=== PATIENT | female | born 1970 | race Caucasian/White ===

== ENCOUNTER → 2020-10-01 | Outpatient (CLI) | payer BC, OTHER ==
[2020-10-02 01:03] LABS: Basophils # (A) 0.04 X 10*3/uL (0.00-0.10); Basophils % (A) 0.4 %; Eosinophils # (A) 0.15 X 10*3/uL (0.04-0.35); Eosinophils % (A) 1.5 %; HCT 40.4 % (37.2-46.3); HGB 12.9 g/dL (12.0-15.0); Lymphocytes # (A) 3.26 X 10*3/uL (0.90-5.00); Lymphocytes % (A) 31.6 %; MCH 27.4 pg (27.0-32.0); MCHC 31.9 g/dL (32.0-37.0); Mean Platelet Volume 10.8 fL (9.5-12.2); Monocytes # (A) 0.64 X 10*3/uL (0.20-1.00); Monocytes % (A) 6.2 %; Neutrophils # (A) 6.18 X 10*3/uL (1.80-7.70); Neutrophils % (A) 59.9 %; Platelet Count 382 X 10*3/uL (140-440); RDW 13.1 % (11.5-14.5); WBC 10.31 X 10*3/uL (4.50-10.00)
[2020-10-02 09:38] LABS: % Iron Saturation 10.99 (12.00-45.00); ALT 15 U/L (8-44); AST 19 U/L (13-35); African American GFR (CKD) 123.2 (60.0-200.0); Albumin/Globulin Ratio 1.81 (1.60-3.17); Alkaline Phosphatase 95 U/L (41-126); BUN/Creat Ratio 23.33 Ratio (12.00-20.00); Calcium 9.8 mg/dL (8.7-10.3); Carbon Dioxide 20.2 mmol/L (21.6-31.8); Chloride 104 mmol/L (96-109); Globulin 2.6 g/dL (1.6-3.3); Glucose 95 mg/dL (70-110); Iron 40 ug/dL (50-170); Non-African American GFR(CKD) 106.3 (60.0-200.0); Potassium 4.5 mmol/L (3.5-5.5); Sodium 138 mmol/L (135-145); Total Bilirubin 0.5 mg/dL (0.2-1.2); Total Iron Binding Capacity 364 ug/dL (228-460); Total Protein 7.3 g/dL (6.2-8.2)
[2020-10-02 10:05] LABS: Folate, Serum >24.0 ng/mL
[2020-10-02 14:50] LABS: Ferritin 38.9 ng/mL (10.0-291.0)
== END | disposition home or self-care (01) ==
LOC: LABWHC1 16:14
PROVIDERS: ATTEND Family Medicine Hospice and Palliative Medicine
DX: D50.0 Iron deficiency anemia secondary to blood loss (chronic) (principal)
CPT/HCPCS: 36415; 80053; 82607; 82728; 82746; 83540; 83550; 85025

== ENCOUNTER 2024-06-09 17:05 | Emergency (ER) | payer BC, OTHER ==
--- NOTE | 2024-06-09 17:39 | ED ---
Chest Pain HPI - General Chief Complaint: Chest Pain Stated Complaint: Chest Pain Time Seen by Provider: 06/09/24 17:15 Source: patient Mode of arrival: wheelchair Limitations: no limitations - History of Present Illness Initial Comments: This patient is 53-year-old woman who presents to have evaluation of left-sided chest pain that she describes as sharp. She states it does get worse with breathing and with movements. It started approximately 2 weeks ago intermittently but is now constant and more severe. MD Complaint: chest pain Onset/Timin -: week(s) Onset: during rest Pain Location: left chest Pain Radiation: LUE, back, neck Severity: moderate Quality: sharp Consistency: constant Improves With: nothing Worsens With: inspiration, movement Treatments Prior to Arrival: none - Related Data Home Medications Medication Instructions Recorded Confirmed Acetaminophen Tab [Tylenol Tab] 1,000 mg PO BID PRN 06/09/24 06/09/24 Apixaban [Eliquis] 2.5 mg PO BID 06/09/24 06/09/24 DULoxetine HCL [Cymbalta] 60 mg PO DAILY 06/09/24 06/09/24 Pregabalin [Lyrica] 75 mg PO BID@0900,1500 06/09/24 06/09/24 Pregabalin [Lyrica] 150 mg PO HS 06/09/24 06/09/24 tiZANidine [Zanaflex] 4 mg PO DAILY PRN 06/09/24 06/09/24 tiZANidine [Zanaflex] 4 mg PO TID 06/09/24 06/09/24 traMADol HCL 100 mg PO BID 06/09/24 06/09/24 Previous Rx's Medication Instructions Recorded methocarbamoL [Robaxin-750] 1,500 mg PO TID #30 tab 06/09/24 Allergies Allergy/AdvReac Type Severity Reaction Status Date / Time bee venom protein (honey bee) Allergy Unknown Verified 06/09/24 18:00 Review of Systems ROS Statement: Those systems with pertinent positive or pertinent negative responses have been documented in the HPI. ROS Other: All systems not noted in ROS Statement are negative. Constitutional: Denies: fever, chills ENT: Denies: throat pain, congestion Respiratory: Reports: cough. Denies: dyspnea Cardiovascular: Reports: chest pain. 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 Hypotension Past Surgical History: Adenoidectomy, Hysterectomy, Tonsillectomy Additional Past Surgical History / Comment(s): Partial hysterectomy. Nasal surgery Smoking Status: Former smoker Past Alcohol Use History: None Reported Past Drug Use History: None Reported General Exam Limitations: no limitations General appearance: alert, in no apparent distress Head exam: Present: atraumatic, normocephalic Eye exam: Present: normal appearance. Absent: scleral icterus, conjunctival injection Neck exam: Present: normal inspection Respiratory exam: Present: normal lung sounds bilaterally, chest wall tenderness. Absent: respiratory distress, wheezes, rales, rhonchi, stridor, accessory muscle use Cardiovascular Exam: Present: regular rate, normal rhythm, normal heart sounds. Absent: systolic murmur, diastolic murmur, rubs, gallop GI/Abdominal exam: Present: soft. Absent: distended, tenderness, guarding, rebound, rigid, mass Extremities exam: Present: normal inspection, normal capillary refill. Absent: pedal edema, calf tenderness Back exam: Present: normal inspection. Absent: CVA tenderness (R), CVA tenderness (L) Neurological exam: Present: alert Skin exam: Present: warm, dry, intact, normal color. Absent: rash Course Vital Signs 06/09/24 06/09/24 06/09/24 17:08 18:14 21:19 Temperature 98.6 F 98.5 F Pulse Rate 86 80 80 Respiratory 20 15 16 Rate Blood Pressure 148/80 135/74 134/78 O2 Sat by Pulse 98 98 98 Oximetry Chest Pain MDM - MDM The patient had chest x-ray that I interpreted as negative for acute infiltrate, pneumothorax, congestive heart failure. Was pt. sent in by a medical professional or institution (, PA, CANAL DRIVER, urgent care, hospital, or long term...) When possible be specific @ -[No] Did you speak to anyone other than the patient for history (EMS, parent, family, police, friend...)? What history was obtained from this source @ -[No] Did you review nursing and triage notes (agree or disagree)? Why? @ -[I reviewed and agree with nursing and triage notes] Were old charts reviewed (outside hosp., previous admission, EMS record, old EKG, old radiological studies, urgent care reports/EKG's, long term records)? Report findings @ -[No old charts were reviewed] Differential Diagnosis (chest pain, altered mental status, abdominal pain women, abdominal pain men, vaginal bleeding, weakness, fever, dyspnea, syncope, headache, dizziness, GI bleed, back pain, seizure, CVA, palpatations, mental health, musculoskeletal)? @ -[Differential Chest Pain: Stable Angina, Unstable Angina, STEMI, NSTEMI Aortic Dissection, Pneumothorax, Musculoskeletal, Esophageal Spasm GERD, Cholecystitis, Pancreatitis, Zoster, this is not meant to be an all-inclusive list. EKG interpreted by me (3pts min.). @ -[I interpreted as above] X-rays interpreted by me (1pt min.). @ -[I interpreted as above CT interpreted by me (1pt min.). @ -[None done] U/S interpreted by me (1pt. min.). @ -[None done] What testing was considered but not performed or refused? (CT, X-rays, U/S, labs)? Why? @ -[None] What meds were considered but not given or refused? Why? @ -[None] Did you discuss the management of the patient with other professionals (professionals i.e. , PA, CANAL DRIVER, lab, RT, psych nurse, social insurance specialist, hydrometer finisher, teacher, correctional security officer, rn case manager)? Give summary @ -[No] Was smoking cessation discussed for >3mins.? @ -[No] Was critical care preformed (if so, how long)? @ -[No] Were there social determinants of health that impacted care today? How? ( Homelessness, low income, unemployed, alcoholism, drug addiction, transportation, low edu. Level, literacy, decrease access to med. care, assisted, rehab)? @ -[No] Was there de-escalation of care discussed even if they declined (Discuss DNR or withdrawal of care, Hospice)? DNR status @ -[No] What co-morbidities impacted this encounter? (DM, HTN, Smoking, COPD, CAD, Cancer, CVA, ARF, Chemo, Hep., AIDS, mental health diagnosis, sleep apnea, morbid obesity)? @ -[None] Was patient admitted / discharged? Hospital course, mention meds given and route, prescriptions, significant lab abnormalities, going to OR and other pertinent info. @ -[Patient is 53-year-old woman presenting with chest pain that has chest wall and pleuritic components. Her workup here is unremarkable. Discussed appropriate further care and follow-up as well as return parameters. Undiagnosed new problem with uncertain prognosis? @ -[No] Drug Therapy requiring intensive monitoring for toxicity (Heparin, Nitro, Insulin, Cardizem)? @ -[No] Were any procedures done? @ -[No] Diagnosis/symptom? @ -[Acute chest pain Acute, or Chronic, or Acute on Chronic? @ -[Acute Uncomplicated (without systemic symptoms) or Complicated (systemic symptoms)? @ -[Uncomplicated Side effects of treatment? @ -[No] Exacerbation, Progression, or Severe Exacerbation? @ -[No] Poses a threat to life or bodily function? How? (Chest pain, [place], [place], pneumonia, PE, COPD, DKA, ARF, appy, cholecystitis, CVA, Diverticulitis, Homicidal, Suicidal, threat to staff... and all critical care pts) @ -[No] All treatments are based on ideal body weight as in ED triage Disposition Clinical Impression: Chest pain Disposition: HOME SELF-CARE Condition: Good Instructions (If sedation given, give patient instructions): Chest Pain (ED) Prescriptions: methocarbamoL [Robaxin-750] 1,500 mg PO TID #30 tab Is patient prescribed a controlled substance at d/c from ED?: No Referrals: Nonstaff,Physician [Primary Care Provider] - 1-2 days
[2024-06-09 18:14] LABS: Basophils # (A) 0.1 k/uL (0-0.2); Basophils % (A) 1 %; Eosinophils # (A) 0.5 k/uL (0-0.7); Eosinophils % (A) 3 %; HGB 13.8 gm/dL (11.4-16.0); Lymphocytes # (A) 2.8 k/uL (1.0-4.8); Lymphocytes % (A) 17 %; MCH 28.3 pg (25.0-35.0); MCHC 32.9 g/dL (31.0-37.0); Mean Platelet Volume 6.9; Monocytes # (A) 0.5 k/uL (0-1.0); Monocytes % (A) 3 %; Neutrophils # (A) 12.3 k/uL (1.3-7.7); Neutrophils % (A) 76 %; Platelet Count 379 k/uL (150-450); RBC 4.89 m/uL (3.80-5.40); RDW 12.8 % (11.5-15.5); WBC 16.3 k/uL (3.8-10.6)
[2024-06-09] MEDS: ASPIRIN 81 MG PO STA (18:15)
[2024-06-09] MEDS: MORPHINE SULFATE 4 MG/ML SYRINGE IV STA (18:17)
[2024-06-09 18:27] LABS: ALT 16 U/L (4-34); AST 22 U/L (14-36); African American GFR (CKD) 82 (>60 ml/min/1.73 sqM); Albumin 5.1 g/dL (3.5-5.0); Alkaline Phosphatase 96 U/L (38-126); Anion Gap 7 mmol/L; Blood Urea Nitrogen 15 mg/dL (7-17); Calcium 9.9 mg/dL (8.4-10.2); Carbon Dioxide 26 mmol/L (22-30); Chloride 104 mmol/L (98-107); Glucose 106 mg/dL (74-99); Non-African American GFR(CKD) 71 (>60 ml/min/1.73 sqM); Potassium 4.7 mmol/L (3.5-5.1); Sodium 137 mmol/L (137-145); Total Bilirubin 0.6 mg/dL (0.2-1.3); Total Protein 8.6 g/dL (6.3-8.2)
[2024-06-09 18:28] LABS: INR 0.9 (<1.2); Partial Thromboplastin Time 25.1 sec (22.0-30.0); Prothrombin Time 10.3 sec (10.0-12.5)
[2024-06-09 19:01] VITALS: PULSE 80
--- NOTE | 2024-06-09 19:17 | XR ---
EXAMINATION TYPE: XR chest 2V DATE OF EXAM: 06/09/2024 6:36 PM COMPARISON: None CLINICAL INDICATION: Female, 53 years old with history of Chest Pain; [facility] TECHNIQUE: XR chest 2V Frontal and lateral views of the chest. FINDINGS: Lungs/Pleura: Low lung volumes are present. There is no evidence of pleural effusion, focal consolida tion, or pneumothorax. Pulmonary vascularity: Unremarkable. Heart/mediastinum: Cardiomediastinal silhouette is unremarkable. Musculoskeletal: No acute osseous pathology. IMPRESSION: Low lung volumes with a generalized hazy appearance which could represent atelectasis versus pulmonar y edema. [facility], , 06/09/2024 7:14 PM
[2024-06-09] MEDS: HYDROmorphone 1 MG/ML 1 ML SYRINGE IVP STA (20:39)
[2024-06-09] MEDS: methocarbamoL 750 MG TAB PO STA (21:14)
[2024-06-09 21:22] VITALS: BP 134/78; RESP 16; TEMP 98.5
== END 2024-06-09 21:22 | disposition home or self-care (01) ==
LOC: EC 17:05
DX: R07.9 Chest pain, unspecified (principal); Z87.891 Personal history of nicotine dependence; Z91.030 Bee allergy status
CPT/HCPCS: 36415; 93005; 85379; 80053; 83735; 84484; 85025; 85610; 85730; 71046; 99285; 96374; 96375; J2270; J1171